=== PATIENT | male | born 1990 | race Caucasian/White ===

== ENCOUNTER 2017-03-01 13:32 | Inpatient (IN) | payer OTHER ==
[~2017-03-01] VITALS: Ht 170.2 cm; Wt 94.0 kg
[2017-03-02] MEDS ORDERED: OMEP40CA2 PO (13:44)
[2017-03-02] MEDS ORDERED: VITA500T83 PO (13:44)
[2017-03-03] MEDS ORDERED: ceFAZolin 2 GM PREMIX 50 ML IV SCH (09:45)
[2017-03-03] MEDS ORDERED: ONDANSETRON HCL 4 MG/2 ML VIAL IV PUSH SCH (09:45)
[2017-03-03] MEDS ORDERED: metroNIDAZOLE 500 MG INJ 100 ML IV SCH (09:45)
[2017-03-03] MEDS ORDERED: CHLORHEXIDINE GLUCONATE 2 % 1 PACK (2 CLOTHS) TOPICAL PRN (09:45)
[2017-03-03] MEDS ORDERED: ACETAMINOPHEN 1000 MG/100 ML VIAL IV SCH (09:45)
[2017-03-03] MEDS ORDERED: INSULIN HUMAN REGULAR 1,000 UNITS/10 ML VIAL SQ PRN (09:45)
[2017-03-03] MEDS ORDERED: LACTATED RINGER'S 1000 ML IV PRN (09:45)
[2017-03-03] MEDS ORDERED: POVIDONE IODINE 5% (ANTISEPSIS KIT) 4 APPLICATIONS EACH NARE PRN (09:45)
[2017-03-03] MEDS ORDERED: SODIUM CHLORID 0.9% 500 ML IV PRN (09:45)
[2017-03-03] MEDS ORDERED: METOPROLOL TARTRATE 25 MG TAB PO PRN (09:45)
[2017-03-03 10:06] VITALS: BP 131/90; PULSE 89; RESP 16; TEMP 98.6; O2SAT 99
[2017-03-03] MEDS ORDERED: PROPOFOL 200 MG/20 ML AMP IV ONE (12:00)
[2017-03-03] MEDS ORDERED: VECURONIUM BROMIDE 10 MG VIAL IV ONE (12:00)
[2017-03-03] MEDS ORDERED: LACTATED RINGER'S 1000 ML INJ 1,000 ML IV ONE (12:00)
[2017-03-03] MEDS ORDERED: SUGAMMADEX SODIUM 200 MG/2 ML VIAL IV PUSH ONE ×2 (12:00)
[2017-03-03] MEDS ORDERED: NORMOSOL R INJ 1,000 ML IV ONE (12:00)
[2017-03-03] MEDS ORDERED: MIDAZOLAM HCL 2 MG/2 ML VIAL IV ONE (12:00)
[2017-03-03] MEDS ORDERED: ONDANSETRON HCL 4 MG/2 ML VIAL IV PUSH ONE (12:00)
[2017-03-03] MEDS ORDERED: FAMOTIDINE 20 MG/2 ML VIAL ONE (13:29)
[2017-03-03] MEDS ORDERED: BUPIVACAINE/EPINEPHRINE 0.25% PF 10 ML VIAL ONE (13:46)
[2017-03-03] MEDS ORDERED: fentaNYL CITRATE 250 MCG/5 ML AMP ONE (14:44)
[2017-03-03] MEDS ORDERED: NALOXONE HCL 0.4 MG/ML AMP IV PRN (17:15)
[2017-03-03] MEDS ORDERED: SODIUM CHLORIDE 0.9% FLUSH 10 ML FLUSH IV FLUSH PRN (17:15)
[2017-03-03] MEDS ORDERED: Post-op Orders (for Pharmacy) MISC XX ONE (17:15)
[2017-03-03] MEDS ORDERED: ACETAMINOPHEN 325MG/HYDROcodone 7.5MG/15ML UDC PO PRN (17:15)
[2017-03-03] MEDS ORDERED: MORPHINE SULFATE 30 MG/30 ML PCA IV SCH (17:15)
[2017-03-03] MEDS ORDERED: ONDANSETRON HCL 4 MG/2 ML VIAL IV PRN (17:15)
[2017-03-03] MEDS ORDERED: MORPHINE SULFATE 4 MG/ML INJ ONE (17:43)
[2017-03-03] MEDS: SODIUM CHLOR 0.9% 1000 ML INJ 1,000 ML IV SCH (18:00)
[2017-03-03] MEDS ORDERED: PANTOPRAZOLE SODIUM 40 MG VIAL IV PUSH SCH (18:00)
[2017-03-03] MEDS ORDERED: DO NOT ADM ANY ANTICOAGULANT DRUGS PRN (18:30)
[2017-03-03] MEDS: metroNIDAZOLE 500 MG INJ 100 ML IV SCH (21:13)
[2017-03-03] MEDS: SODIUM CHLORIDE 0.9% FLUSH 10 ML FLUSH IV FLUSH SCH (21:13)
[2017-03-03 21:54] VITALS: BP 139/87; PULSE 109; RESP 16; TEMP 96.9; O2SAT 95
[2017-03-03] MEDS: PCA - TOTAL MG MORPHINE DELIVERED PER SHIFT SCH (22:00)
[2017-03-04 01:01] VITALS: BP 132/81; PULSE 109; RESP 17; TEMP 99; O2SAT 94
[2017-03-04] MEDS: SODIUM CHLOR 0.9% 1000 ML INJ 1,000 ML IV SCH ×2 (04:00→14:00)
[2017-03-04 04:32] VITALS: BP 124/76; PULSE 78; RESP 18; TEMP 97.8; O2SAT 97
[2017-03-04] MEDS: metroNIDAZOLE 500 MG INJ 100 ML IV SCH ×2 (05:49→12:12)
[2017-03-04] MEDS: PCA - TOTAL MG MORPHINE DELIVERED PER SHIFT SCH (05:53)
[2017-03-04 08:00] VITALS: BP 121/71; PULSE 105; RESP 18; TEMP 97.7; O2SAT 94
[2017-03-04] MEDS: SODIUM CHLORIDE 0.9% FLUSH 10 ML FLUSH IV FLUSH SCH (08:36)
--- NOTE | 2017-03-04 09:19 | HHI.PR ---
Subjective Subjective Notes 26yo male POD#1 Mila fundoplication. Laying in bed with no GI complaints. Complains of incisional tenderness Objective Vitals/I&O Vital Signs Date Time Temp Pulse Resp B/P Pulse Ox O2 Delivery O2 Flow Rate FiO2 03/04/17 08:00 97.7 105 18 121/71 94 03/03/17 20:15 Nasal Cannula 3 Cardiovascular: Regular Lungs: Clear Abdomen: Post-op tenderness Extremities: Perfused Wound Wound : Wound Location: Abdomen Appearance: Clean & Dry A/P Assessment and Plan Clear/full liquids Sit up in bed, continue with frequent ambulation The exam, history, and the medical decision-making described in the above note were completed with the assistance of the mid-level provider. I reviewed and agree with the findings presented. I attest that I had a [id number] encounter with the patient on the same day, and personally performed and documented my assessment and findings in the medical record. Discharge Planning D/C home later today as long as he is tolerating fluids. Speedy Clancy Mar 04, 2017 09:19 Palmer Antunez MD Mar 16, 2017 11:18
[2017-03-04] MEDS: ACETAMINOPHEN 325MG/HYDROcodone 7.5MG/15ML UDC PO PRN ×2 (09:21→14:51)
[2017-03-04] MEDS ORDERED: HYDR1SOL3 PO (11:11)
[2017-03-04 12:00] VITALS: BP 114/72; PULSE 107; RESP 19; TEMP 98.3; O2SAT 95
[2017-03-04] MEDS ORDERED: ENOXAPARIN SODIUM 30 MG/0.3 ML SYRINGE SQ SCH (16:32)
--- NOTE | 2017-03-15 12:15 | MP ---
cc: JD ANTUNEZ DATE OF SURGERY: 03/03/2017 1988 PREOPERATIVE DIAGNOSIS Gastroesophageal reflux unresponsive to medical management. POSTOPERATIVE DIAGNOSIS Gastroesophageal reflux unresponsive to medical management. PROCEDURE Robot-assisted laparoscopic partial fundoplication (Toupet) with hiatal hernia repair. SURGEON Jd Antunez MD ANESTHESIA General endotracheal anesthesia. ESTIMATED BLOOD LOSS Scant. FINDINGS Moderate-sized hiatal hernia. SPECIMENS None. COMPLICATIONS None. OPERATION The patient was brought to the operating room and placed on the operating table in supine position. Bilateral sequential inflation device placed on the lower extremities. General anesthesia was instituted. Gibbons catheter was placed. Antibiotics were initiated. The abdomen was prepped and draped sterilely. A point 15 cm distal to the xiphoid in the midline anesthetized with 0.25% Marcaine with epinephrine. A skin incision was made, 5 mm OptiVu port was placed under direct vision and pneumoperitoneum created. Under direct vision a 5-mm left upper quadrant port, 8 mm robotic left upper quadrant, 8 mm robotic right upper quadrant and 5 mm right upper quadrant port was placed. Prior to placement of all ports the skin and peritoneum was anesthetized with 0.25% Marcaine with epinephrine. The 5 mm epigastric port was switched out for a 12 mm port under direct vision. Both 2-0 and 0 Silk sutures were placed into the abdominal cavity as well as Ray-Caren gauze and a Halle drain. The Geovanna flex retractor was placed. The left lobe of the liver was retracted. The patient was placed in reverse Trendelenburg position. At this point the laparoscopic tower was removed from the patient's bedside. The da [place] robot was brought to the bedside and docked in place. I then broke scrub and I went to the console. Attention was focused in the upper abdomen. The hepato-gastric ligament was opened. The inferior aspect of the right crura of the diaphragm was dissected. The angle of His was taken down. The inferior aspect of the left crura of the diaphragm was dissected. Ringle was then placed around the proximal stomach. The stomach and GE junction was withdrawn into the abdominal cavity. The crura of the diaphragm was dissected anteriorly, both right and left. The distal esophagus was mobilized out of the mediastinum into the abdominal cavity. The hernia sac was excised. The crura of the diaphragm was approximated with 0 Silk suture in a [id number] manner, three interrupted stitches were placed posteriorly. The vasculature along the greater curve of the stomach was starting at a distance of a third way down on the greater curve and this was taken up towards the angle of His. The posterior ligamentous attachments sharply . The fundoplication was then created. The greater curve was brought from the patient's left to the right and an initial stitch was placed on the posterior cardia to the crura of the diaphragm. A wrap was then created in 270 degrees. First stitch was placed superiorly from the 10 o'clock position on the right crura to the stomach and esophagus. Three interrupted stitches were then placed from the stomach to the esophagus on the right inferior to initial stitch. On the left a stitch was then placed in the 1 o'clock position on the left crura to the stomach and then the esophagus, and three additional interrupted stitches were placed inferior to this from the stomach to the esophagus creating a 270 degree wrap. The operative field was inspected, hemostasis was present. At this point the robot was undocked. The laparoscopic tower was brought back into view. I then scrubbed back in. All needles, Ringle and Ray-Caren gauze were removed from the abdominal cavity. The Geovanna flex retractor was then removed. The fascia at the 12 mm port site was approximated with 0-Vicryl using fascial closure device. The CO2 was released, all additional laparoscopic ports removed, all skin incisions were closed with 4-0 Monocryl. The abdominal wall was clean and a sterile dressing was placed. The patient was awakened and taken to the recovery room. All sponge and instrument counts were reported as correct at the end of the procedure. MD ANISH Diop/DAVIE /10:03 AM /12:00 PM JAMEE
== END 2017-03-04 16:42 | disposition home or self-care (01) | DRG 328 ==
LOC: HSDI 03-03 09:24 → N07A 03-03 20:27 → N07B 03-03 21:32
PROVIDERS: ADMIT Surgery; ATTEND Surgery
PROC: 8E0W4CZ Robotic Assisted Procedure of Trunk Region, Percutaneous Endoscopic Approach (ICD-10-PCS; 2017-03-03)
PROC: 0BQR4ZZ (ICD-10-PCS; 2017-03-03)
PROC: 0BQS4ZZ (ICD-10-PCS; 2017-03-03)
PROC: 0DV44ZZ Restriction of Esophagogastric Junction, Percutaneous Endoscopic Approach (ICD-10-PCS; principal; 2017-03-03 13:52)
DX: K21.9 Gastro-esophageal reflux disease without esophagitis (principal); E66.9 Obesity, unspecified; K44.9 Diaphragmatic hernia without obstruction or gangrene; Z68.32 Body mass index [BMI] 32.0-32.9, adult
CPT/HCPCS: 94150; C9113; J0131; J0690; J2250; J2270; J2405; J3010; J7030; J7120

== ENCOUNTER 2018-02-15 13:40 | Emergency (ER) | payer OTHER ==
[~2018-02-15 13:40] MED LIST: HYDR1SOL3 PO; VITA500T83 PO
[2018-02-15 13:45] VITALS: O2SAT 95
[2018-02-15 13:49] VITALS: BP 147/85; PULSE 114; RESP 20; TEMP 97.7; O2SAT 95
[2018-02-15 14:00] LABS: AUTOMATED NEUTROPHIL # 4.5 TH/MM3 (1.8-7.7); BASOPHIL # 0.2 TH/MM3 (0-0.2); BASOPHIL % 2.3 % (0.0-2.0); EOSINOPHIL # 0.1 TH/MM3 (0-0.4); EOSINOPHIL % 0.8 % (0.0-4.0); HEMATOCRIT 46.7 % (39.0-51.0); HEMOGLOBIN 16.1 GM/DL (13.0-17.0); LYMPH % 26.2 % (9.0-44.0); LYMPHOCYTE # 1.9 TH/MM3 (1.0-4.8); MEAN CELL VOLUME 87.1 FL (80.0-100.0); MEAN CORPUSCULAR HGB CONC 34.4 % (32.0-36.0); MEAN PLATELET VOLUME 9.4 FL (7.0-11.0); MONO % 8.2 % (0.0-8.0); MONOCYTE # 0.6 TH/MM3 (0-0.9); NEUT % 62.5 % (16.0-70.0); PLATELET COUNT 203 TH/MM3 (150-450); RED BLOOD COUNT 5.37 MIL/MM3 (4.50-5.90); WHITE BLOOD COUNT 7.3 TH/MM3 (4.0-11.0)
--- NOTE | 2018-02-15 14:13 | PD ---
HPI Chief Complaint: Cardiac Complaint Time Seen by Provider: 13:55 Travel History International Travel<30 days: No Contact w/Intl Traveler<30days: No Traveled to known affect area: No History of Present Illness HPI Patient is a 27-year-old male with history of GERD, atypical chest pain, anxiety disorder, depression, presents to the emergency room for evaluation of chest pain. Patient reports that he works in [employer], reports that around 7 :30 AM this morning while working, he began developed left-sided chest pain. Patient reports that chest pain is located in his left breast, reports that pain is sharp and stabbing in nature. Reports that pain is nonradiating in nature. Patient reports that he feels as if its difficult for him to take a deep breath. Patient reports that he has had history of chest pain caused by GERD in the past, reports that symptoms feel different from this. Patient reports his symptoms are intermittent in nature, reports that sometimes last for a few seconds, sometimes they last for a little longer, reports that he is unsure how long his symptoms last for. Reports that nothing really makes his symptoms better or worse. patient denies history of hypertension, hyperlipidemia, diabetes, patient reports remote history of a possible TIA in the past. Patient is a nonsmoker. PFSH Past Medical History Arthritis: No Asthma: Yes Autoimmune Disease: No Blood Disorders: No Anxiety: Yes Depression: Yes Heart Rhythm Problems: No Cancer: No Cardiovascular Problems: No High Cholesterol: No Chemotherapy: No Chest Pain: No Congestive Heart Failure: No COPD: Yes Cerebrovascular Accident: No Diabetes: No Diminished Hearing: No Endocrine: No Gastrointestinal Disorders: Yes GERD: Yes Glaucoma: No Genitourinary: No Headaches: No Hepatitis: No Hiatal Hernia: Yes Hypertension: No Immune Disorder: No Implanted Vascular Access Dvce: No Kidney Stones: No Musculoskeletal: No Neurologic: No Psychiatric: No Reproductive: No Respiratory: No Immunizations Current: Yes Migraines: No Myocardial Infarction: No Radiation Therapy: No Renal Failure: No Seizures: No Sickle Cell Disease: No Sleep Apnea: No Thyroid Disease: No Ulcer: No Past Surgical History Abdominal Surgery: No AICD: No Appendectomy: No Arteriovenous Shunt: No Cardiac Surgery: No Cholecystectomy: No Ear Surgery: No Endocrine Surgery: No Eye Surgery: No Genitourinary Surgery: Yes Gynecologic Surgery: No Insulin Pump: No Joint Replacement: No Neurologic Surgery: No Oral Surgery: No Pacemaker: No Thoracic Surgery: No Other Surgery: Yes (TESTICULAR TORTION SURGERY) Social History Alcohol Use: No Tobacco Use: No Substance Use: No Allergies-Medications (Allergen,Severity, Reaction): Coded Allergies: No Known Allergies (Verified Adverse Reaction, Unknown, 02/15/18) Reported Meds & Prescriptions Reported Meds & Active Scripts Active Review of Systems Cardiovascular: Positive: Chest Pain or Discomfort, Palpitations Respiratory: Positive: Shortness of Breath Physical Exam Narrative GENERAL: Mild distress SKIN: Focused skin assessment warm/dry. HEAD: Atraumatic. Normocephalic. EYES: Pupils equal and round. No scleral icterus. No injection or drainage. ENT: No nasal bleeding or discharge. Mucous membranes pink and moist. NECK: Trachea midline. No JVD. CARDIOVASCULAR: Tachycardia. No murmur appreciated. RESPIRATORY: No accessory muscle use. Clear to auscultation. Breath sounds equal bilaterally. GASTROINTESTINAL: Abdomen soft, non-tender, nondistended. Hepatic and splenic margins not palpable. MUSCULOSKELETAL: No obvious deformities. No clubbing. No cyanosis. No edema. NEUROLOGICAL: Awake and alert. No obvious cranial nerve deficits. Motor grossly within normal limits. Normal speech. PSYCHIATRIC: Appropriate mood and affect; insight and judgment normal. Data Data Last Documented VS Vital Signs Date Time Temp Pulse Resp B/P (MAP) Pulse Ox O2 Delivery O2 Flow Rate FiO2 02/15/18 14:42 97 20 139/82 (101) 97 Room Air 02/15/18 13:49 97.7 Orders Orders Electrocardiogram (02/15/18 13:43) Complete Blood Count With Diff (02/15/18 13:43) Basic Metabolic Panel (Bmp) (02/15/18 13:43) Ckmb (Isoenzyme) Profile (02/15/18 13:43) Troponin I (02/15/18 13:43) Chest, Single Ap (02/15/18 13:43) Iv Access Insert/Monitor (02/15/18 13:43) Ecg Monitoring (02/15/18 13:43) Oxygen Administration (02/15/18 13:43) Oximetry (02/15/18 13:43) D-Dimer (02/15/18 14:02) Sodium Chlor 0.9% 1000 Ml Inj (Ns 1000 M (02/15/18 14:15) Ketorolac Inj (Toradol Inj) (02/15/18 14:15) CKMB (02/15/18 13:46) CKMB% (02/15/18 13:46) Labs Laboratory Tests Test 02/15/18 13:46 White Blood Count 7.3 TH/MM3 Red Blood Count 5.37 MIL/MM3 Hemoglobin 16.1 GM/DL Hematocrit 46.7 % Mean Corpuscular Volume 87.1 FL Mean Corpuscular Hemoglobin 30.0 PG Mean Corpuscular Hemoglobin Concent 34.4 % Red Cell Distribution Width 12.0 % Platelet Count 203 TH/MM3 Mean Platelet Volume 9.4 FL Neutrophils (%) (Auto) 62.5 % Lymphocytes (%) (Auto) 26.2 % Monocytes (%) (Auto) 8.2 % Eosinophils (%) (Auto) 0.8 % Basophils (%) (Auto) 2.3 % Neutrophils # (Auto) 4.5 TH/MM3 Lymphocytes # (Auto) 1.9 TH/MM3 Monocytes # (Auto) 0.6 TH/MM3 Eosinophils # (Auto) 0.1 TH/MM3 Basophils # (Auto) 0.2 TH/MM3 CBC Comment DIFF FINAL Differential Comment D-Dimer Quantitative (PE/DVT) LESS THAN 0.19 MG/L FEU Blood Urea Nitrogen 15 MG/DL Creatinine 1.20 MG/DL Random Glucose 102 MG/DL Calcium Level 7.8 MG/DL Sodium Level 141 MEQ/L Potassium Level 3.5 MEQ/L Chloride Level 110 MEQ/L Carbon Dioxide Level 22.3 MEQ/L Anion Gap 9 MEQ/L Estimat Glomerular Filtration Rate 72 ML/MIN Total Creatine Kinase 159 U/L Creatine Kinase MB 1.4 NG/ML Troponin I LESS THAN 0.02 NG/ML MDM Medical Decision Making Medical Screen Exam Complete: Yes Emergency Medical Condition: Yes Medical Record Reviewed: Yes Interpretation(s) EKG at 1338: Sinus tachycardia at 108bpm, qt/qtc: 316/379, there are no acute ST or T-wave changes Vital Signs Date Time Temp Pulse Resp B/P (MAP) Pulse Ox O2 Delivery O2 Flow Rate FiO2 02/15/18 13:49 97.7 114 20 147/85 (105) 95 02/15/18 13:45 95 Room Air Differential Diagnosis ACS, arrhythmia, PE, anxiety reaction Narrative Course Patient is a 27-year-old male who presents the emergency room complaints of left -sided chest pain which has been intermittent in nature since 10:30 AM this morning. EKG shows sinus tachycardia at 108 bpm, there are no acute ST-T wave changes. Overall, patient's chest pain is atypical in nature, d-dimer is ordered to rule out PE as patient symptoms are pleuritic in nature and patient has a low perc score. During the course of the patients emergency department visit, the patients history, examination, and differential diagnosis were reviewed with the patient. The patient was placed on a spinning machine tender with oximetry and frequent blood pressure monitoring. The patient had an IV access obtained and blood work sent for analysis. The patient was initially provided IV fluids. The patients laboratory studies were reviewed and remarkable for Laboratory Tests Test 02/15/18 13:46 White Blood Count 7.3 TH/MM3 (4.0-11.0) Red Blood Count 5.37 MIL/MM3 (4.50-5.90) Hemoglobin 16.1 GM/DL (13.0-17.0) Hematocrit 46.7 % (39.0-51.0) Mean Corpuscular Volume 87.1 FL (80.0-100.0) Mean Corpuscular Hemoglobin 30.0 PG (27.0-34.0) Mean Corpuscular Hemoglobin Concent 34.4 % (32.0-36.0) Red Cell Distribution Width 12.0 % (11.6-17.2) Platelet Count 203 TH/MM3 (150-450) Mean Platelet Volume 9.4 FL (7.0-11.0) Neutrophils (%) (Auto) 62.5 % (16.0-70.0) Lymphocytes (%) (Auto) 26.2 % (9.0-44.0) Monocytes (%) (Auto) 8.2 % (0.0-8.0) Eosinophils (%) (Auto) 0.8 % (0.0-4.0) Basophils (%) (Auto) 2.3 % (0.0-2.0) Neutrophils # (Auto) 4.5 TH/MM3 (1.8-7.7) Lymphocytes # (Auto) 1.9 TH/MM3 (1.0-4.8) Monocytes # (Auto) 0.6 TH/MM3 (0-0.9) Eosinophils # (Auto) 0.1 TH/MM3 (0-0.4) Basophils # (Auto) 0.2 TH/MM3 (0-0.2) CBC Comment DIFF FINAL Differential Comment D-Dimer Quantitative (PE/DVT) LESS THAN 0.19 MG/L FEU Blood Urea Nitrogen 15 MG/DL (7-18) Creatinine 1.20 MG/DL (0.60-1.30) Random Glucose 102 MG/DL (74-106) Calcium Level 7.8 MG/DL (8.5-10.1) Sodium Level 141 MEQ/L (136-145) Potassium Level 3.5 MEQ/L (3.5-5.1) Chloride Level 110 MEQ/L (98-107) Carbon Dioxide Level 22.3 MEQ/L (21.0-32.0) Anion Gap 9 MEQ/L (5-15) Estimat Glomerular Filtration Rate 72 ML/MIN (>89) Total Creatine Kinase 159 U/L (39-308) Creatine Kinase MB 1.4 NG/ML (0.5-3.6) Troponin I LESS THAN 0.02 NG/ML Radiology studies were reviewed and remarkable for Last Impressions Chest X-Ray 02/15/18 1343 Signed Impressions: CONCLUSION: Slight elevation left hemidiaphragm. Lungs are clear. All labs and studies reviewed, patient with a negative d-dimer, given a low PERC score, patient with low probability for PE. Patient did have improvement in pain after he was given IV Toradol, patient with most likely costochondritis and atypical chest pain. Patient will follow-up with his primary care doctor, signs or symptoms of when to return to the emergency room was reviewed with the patient in detail. Diagnosis Primary Impression: Costochondritis Patient Instructions: General Instructions Additional Instructions: Please provide patient with a copy of their lab work and studies at discharge* * Please follow up with your primary care doctor in 2-3 days Return to the ER if symptoms worsen or progress Return to the ER as needed Med/Other Pt SpecificInfo: Prescription(s) given Scripts Ibuprofen (Ibuprofen) 600 Mg Tab 600 MG PO Q6H Y for Pain/Inflammation, #40 TAB 0 Refills Prov: Leonora Acharya DO 02/15/18 Disposition: 01 DISCHARGE HOME Condition: Stable Leonora Acharya DO February 15, 2018 14:13
[2018-02-15 14:14] LABS: CHLORIDE 110 MEQ/L (98-107); SODIUM (NA) 141 MEQ/L (136-145)
[2018-02-15] MEDS ORDERED: SODIUM CHLOR 0.9% 1000 ML INJ 1,000 ML IV ONE (14:15)
[2018-02-15] MEDS ORDERED: KETOROLAC TROMETHAMINE 30 MG/ML (IVP) VIAL IV PUSH ONE (14:15)
--- NOTE | 2018-02-15 14:15 | RADRPT ---
EXAM DATE: 02/15/2018 2:03 PM EDT AGE/SEX: 27 years / Male INDICATIONS: Chest pain, short of breath. CLINICAL DATA: This is the patient's initial encounter. Patient reports that signs and symptoms have been present for 1 day and indicates a pain score of 6/10. MEDICAL/SURGICAL HISTORY: None. . hiatal hernia repair COMPARISON: [facility], CHEST SINGLE AP, 04/29/2016. . FINDINGS: A single AP view of the chest demonstrates the lungs to be symmetrically aerated without evidence of mass, infiltrate or effusion. Slight elevation left hemidiaphragm with gaseous distention of the sto mach. The cardiomediastinal contours are unremarkable. Osseous structures are intact. CONCLUSION: Slight elevation left hemidiaphragm. Lungs are clear. Electronically signed by: Rakesh English MD 02/15/2018 2:14 PM EDT
[2018-02-15 14:17] LABS: BICARBONATE 22.3 MEQ/L (21.0-32.0); BLOOD UREA NITROGEN 15 MG/DL (7-18); CALCIUM 7.8 MG/DL (8.5-10.1); GLUCOSE,RANDOM 102 MG/DL (74-106)
[2018-02-15 14:21] LABS: GLOMERULAR FILTRATION RATE 72 ML/MIN (>89)
[2018-02-15 14:25] LABS: TROPONIN I LESS THAN 0.02 NG/ML (0.02-0.05)
[2018-02-15 14:42] VITALS: BP 139/82; PULSE 97; RESP 20; O2SAT 97
[2018-02-15] MEDS ORDERED: IBUP-232 PO (14:50)
--- NOTE | 2018-02-16 14:20 | EKG ---
Date Performed: 02/15/2018 Time Performed: 13:38:04 PTAGE: 27 years EKG: SINUS TACHYCARDIA ABNORMAL RHYTHM ECG INTERPRETATION BASED ON A DEFAULT AGE OF 40 YEARS PREVIOUS TRACING : 04/29/2016 23.19 DOCTOR: Rakan Raya Interpretating Date/Time 02/16/2018 14:20:02
== END 2018-02-15 15:16 | disposition home or self-care (01) ==
LOC: PHED 13:40
DX: M94.0 Chondrocostal junction syndrome [Tietze] (principal); R00.0 Tachycardia, unspecified; R94.31 Abnormal electrocardiogram [ECG] [EKG]; K21.9 Gastro-esophageal reflux disease without esophagitis; F41.9 Anxiety disorder, unspecified; F32.9 Major depressive disorder, single episode, unspecified; J44.9 Chronic obstructive pulmonary disease, unspecified
CPT/HCPCS: 71045; 80048; 82550; 82552; 84484; 85025; 85379; 93005; 96361; 96374; 99285; J1885; J7030